=== PATIENT | male | born 1965 | race Hispanic/Latino ===

== ENCOUNTER 2017-07-26 22:46 | Observation (INO) | payer SELFPAY ==
[2017-07-26 23:14] LABS: #Basophils 0.1 thou/uL (0.0-0.2); #Eosinphils 0.2 thou/uL (0.0-0.7); #Lymphocytes 2.8 thou/uL (1.20-3.40); #Monocytes 0.9 thou/uL (0.11-0.59); #Neutrophils 8.2 thou/uL (1.40-6.50); %Basophils 0.7 % (0.0-1.0); %Eosinophils 1.5 % (0.0-10.0); %Lymphocytes 23.1 % (21.0-51.0); %Neutrophils 67.7 % (42.0-75.0); Hemoglobin 15.3 g/dL (14.0-18.0); Mean Corpuscular HGB CONC 33.7 g/dL (32.0-36.0); Mean Corpuscular Hemoglobin 31.4 pg (27.0-31.0); Mean Corpuscular Volume 93.1 fl (80.0-94.0); Mean Platelet Volume 7.5 fL (7.4-10.4); Platelet Count 287 thou/uL (130-400); RBC Distribution Width 12.5 % (11.5-14.5); Red Blood Cell (RBC) Count 4.88 mill/uL (4.70-6.10); White Blood Cell (WBC) Count 12.1 thou/uL (4.8-10.8)
[2017-07-26 23:37] LABS: ALT (SGPT) 15 U/L (8-55); AST (SGOT) 13 U/L (5-34); Albumin 4.2 g/dL (3.5-5.0); Alkaline Phosphatase 67 U/L (40-150); Anion Gap 14 mmol/L (10-20); BUN (Urea Nitrogen) 12 mg/dL (8.4-25.7); Bilirubin, Total 0.5 mg/dL (0.2-1.2); Calc. Creatinine Clearance 0 mL/min (70-130); Calcium 9.1 mg/dL (7.8-10.44); Carbon Dioxide 27 mmol/L (22-29); Chloride 105 mmol/L (98-107); Estimated GFR-MDRD 64; Globulin 3.1 g/dL (2.4-3.5); Glucose 104 mg/dL (70-105); Potassium 3.7 mmol/L (3.5-5.1); Protein, Total 7.3 g/dL (6.0-8.3); Sodium 142 mmol/L (136-145)
[2017-07-26 23:39] LABS: CKMB 2.2 ng/mL (0-6.6); Troponin I Less than 0.010 ng/mL (< 0.028)
--- NOTE | 2017-07-26 23:59 | CT ---
NONCONTRAST HEAD CT: Date: 07/26/17 HISTORY: Left arm tingling and pain. COMPARISON: 03/31/16. TECHNIQUE: A noncontrast head CT is performed from the skull base to the skull vertex. FINDINGS: No parenchymal hemorrhage or extra-axial hematoma. No midline shift. Basilar cisterns are patent. Bra in volume is age-appropriate. Cortical franco-white matter differentiation is preserved. Ventricles and sulci are patent and symmetric. Adequate aeration of the sinuses and mastoid air cells. Calvarium is intact. IMPRESSION: No acute intracranial process. POS: [facility]
--- NOTE | 2017-07-27 00:01 | RAD ---
CHEST 1 VIEW: Date: 07/26/17 HISTORY: Chest pain. COMPARISON: 11/12/16. FINDINGS: Normal cardiac silhouette. Pleural spaces are clear. Chronic changes in the lung bases. IMPRESSION: No acute cardiopulmonary process. POS: [facility]
[2017-07-27 02:42] LABS: Amphetamine Not Detected (NotDetected); Barbiturates Screen Not Detected (NotDetected); Benzodiazepine Screen Not Detected (NotDetected); Cocaine Metabolite Screen Not Detected (NotDetected); Medtox Control Line Valid? VALID (VALID); Medtox Reader # READER 4; Methadone Not Detected (NotDetected); Methamphetamine Not Detected (NotDetected); Opiate Screen Not Detected (NotDetected); Oxycodone Screen Not Detected (NotDetected); Phencyclidine (PCP) Not Detected (NotDetected); THC/Cannabinoid Screen Not Detected (NotDetected); Tricyclic Screen Not Detected (NotDetected)
[2017-07-27 02:43] LABS: Troponin I Less than 0.010 ng/mL (< 0.028)
[2017-07-27] MEDS ORDERED: Acetaminophen 325 MG TAB PO PRN (03:42)
[2017-07-27] MEDS ORDERED: Nitroglycerin 0.4 MG TAB (25 Tab Bottle) PO PRN (03:42)
[2017-07-27 05:43] LABS: Troponin I 0.013 ng/mL (< 0.028)
--- NOTE | 2017-07-27 06:51 | HP-2 ---
DATE OF ADMISSION: 07/27/2017 CODE STATUS: FULL. PRIMARY CARE PHYSICIAN: Abel escalera. ATTENDING: Dr. Zayas RESIDENT: Dr. She Hale HISTORIAN: Patient. CHIEF COMPLAINT: Left arm and hand tingling and chest like pressure. HISTORY OF PRESENT ILLNESS: A 51-year-old male with a history of NSTEMI, status post cath without stents, found to have moderate CAD presents with left hand tingling in the distal fingertips and pain in the distal fingertips. He also states that he feels some chest pressure that comes and goes sometimes. He states the chest pressure is not associated with exertion. He has no associated nausea or vomiting. He does not describe the pain as radiating down his arm. He states that the tingling and pain that he is having in his hand is in his fingertips and somewhat in his forearm, but it does not radiate from his chest or from his neck down his arm. He in 2016 had a history of an NSTEMI as stated above was taken to the labor commissioner without stent placement and was found to have moderate CAD. He says he is compliant with medications. 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 PAST MEDICAL HISTORY: 1. Hypertension. 2. Peptic ulcer disease. 3. Epilepsy. 4. Coronary artery disease, moderate. PAST SURGICAL HISTORY: 1. Heart catheterization in 03/2016 without stent placement. 2. Cholecystectomy. 3. Hernia repair. ALLERGIES: No known drug allergies. MEDICATIONS: 1. Aspirin 81 mg. 2. Keppra 500 mg p.o. b.i.d. 3. Lisinopril/HCTZ 1 tab p.o. daily. 4. Simvastatin 20 mg p.o. at bedtime. FAMILY HISTORY: Father had a stroke and also had an ID when he was in his 60s. SOCIAL HISTORY: Tobacco use, smokes 1 pack per day for 40 years. He is a former alcohol and drug user. REVIEW OF SYSTEMS: GENERAL: Denies fevers and chills. EYES: Denies vision changes. RESPIRATORY: Denies cough, congestion. CARDIOVASCULAR: Denies chest pain, palpitations. GASTROINTESTINAL: Denies nausea, vomiting. GENITOURINARY: Denies incontinence, dysuria. SKIN: Denies rashes or lesions. MUSCULOSKELETAL: Denies pain or tenderness. NEUROLOGIC: Denies weakness. Endorses left hand numbness and tingling. PSYCHIATRIC: Denies anxiety, depression. PHYSICAL EXAMINATION: VITAL SIGNS: Blood pressure 145/92, pulse 88, respiratory rate 18, T-max 98.6, pulse ox 97% on room air, current weight 95 kilograms. GENERAL: Alert and oriented x4, no apparent distress. Well-developed, appropriately interactive. EYES: PERRLA, EOMI. ENT: Nasal mucosa and oropharynx within normal limit. NECK: Supple. No lymphadenopathy. CARDIOVASCULAR: Regular rate and rhythm. No murmur, rub or gallops. 2+ pedal pulses. RESPIRATORY: Normal effort, no retractions. ABDOMEN: Soft, nontender to palpation. Bowel sounds in all 4 quadrants. No masses or distention. EXTREMITIES: No clubbing, no cyanosis, no edema. MUSCULOSKELETAL: Structure within normal limits. Tone within normal limits. Muscle power 5/5. Full range of motion. NEUROLOGIC: Presence of peripheral left hand focal deficits with decreased sensation and pain to palpation in the left 4 metacarpal digits. Cranial nerves II-XII intact. GCS of 15. Negative Spurling's, negative Adson's, negative Tinel's. LABORATORY DATA: CBC 12.1, 15.3, 45.4, 287. CMP: 142, 3.7, 105, 27, 12, 1.2, 104, GFR 64. AST, ALT, alkaline phosphatase 13, 15, 67. Calcium, total protein, albumin, 9.17, 0.34, 0.2. Total bilirubin 0.5. CK-MB 2.2, troponin less than 0.01. CK 198. EKG: Normal sinus rhythm with nonspecific changes showing Q-waves in lead II. Chest x-ray; no acute cardiopulmonary process. CT brain, no acute intracranial process. ASSESSMENT AND PLAN: A 51-year-old male with a history of an NSTEMI and with moderate CAD presents with tingling and numbness in his left fingertips and transient chest pain described as pressure, admitted for atypical chest pain and peripheral neuropathy of the left upper extremity. 1. Atypical chest pain which was described as pressure transiently that comes and goes. It occurs at rest. His EKG showed nonspecific changes with Q-waves in lead II and his CK-MB and troponins were within normal limits. We will admit to tele observation. We will keep the patient n.p.o. and order a pharmacologic stress test in the morning as the patient had a heart score of 4. 2. Peripheral neuropathy, left upper extremity. I would recommend further outpatient workup if the pain persists. The patient had a negative Spurling's which does not suggest a cervical radiculopathy, as well as a negative Adson's. He also had a negative Tinel's, so his picture does not fit a classic carpal tunnel picture either. However, he only describes the tingling and numbness in his hand that radiates somewhat up his forearm. For pain control we will do a trial of gabapentin. 3. Epilepsy. We will restart the patient's Keppra. 4. Hypertension. We will restart the patient's home medications. BOBD
--- NOTE | 2017-07-27 08:42 | PDOC.EVN ---
Attending Addendum - Attending Addendum I personally evaluated the patient and discussed the management with Dr. Yuki Hale. I agree with the History, Examination, Assessment and Plan documented in her H& P with any addition or exceptions noted below. Patient with history of CAD based on cath in 2016 presenting with L hand symptoms as well as intermittent chest pressure. His cardiac enzymes are negative, and EKG is more consistent with previous damage but nothing acute. Patient has elevated HEART score, will obtain stress testing today. If negative , can likely be discharged with outpatient follow up with his cardiovascular specialist. Will check other labs and adjust his CAD meds as needed to obtain maximal control of risk factors. In regards to hand pain, seems unrelated to the chest complaint. It is possibly related to a neuropathy of some type that can be further worked up as outpatient.
[2017-07-27] MEDS ORDERED: Lisinopril/Hydrochlorothiazide 10 mg/12.5 mg Tablet PO SCH (09:00)
[2017-07-27] MEDS ORDERED: Gabapentin 100 MG CAP PO SCH (09:00)
[2017-07-27] MEDS ORDERED: levETIRAcetam 500 MG TAB PO SCH (09:00)
[2017-07-27] MEDS ORDERED: Aspirin 81 mg Enteric Coated Tablet PO SCH (09:00)
[2017-07-27 09:27] LABS: Cardiac Risk 4.6 (Less than 4.5)
--- NOTE | 2017-07-27 13:53 | NM ---
CARDIAC SPECT: CLINICAL HISTORY: 51-year-old male with chest pain. TECHNIQUE: A myocardial perfusion scan was performed using the single isotope one day protocol with technetium-9 9m sestamibi. 9 mCi were injected intravenously for the rest exam followed by 32 mCi for the stress e xam. Pharmacologic stress with Adenosine was monitored and interpreted by Kate Gordon NP. FINDINGS: There is a fixed defect in the distal inferior wall. No reversible defects are seen. GATED SPECT LVEF: 50%. WALL MOTION EXAM: No significant wall motion abnormalities are seen. IMPRESSION: 1. No evidence of reversible ischemia. 2. Distal inferior wall scar. POS: [facility]
[2017-07-27] MEDS ORDERED: ADENOSINE 60 MG/20 ML VIAL ONE (16:45)
[2017-07-27] MEDS ORDERED: Atorvastatin Calcium 10 MG TAB PO SCH (21:00)
--- NOTE | 2017-07-28 06:14 | DIS-2 ---
DATE OF ADMISSION: 07/27/2017 DATE OF DISCHARGE: 07/27/2017 ADMITTING ATTENDING: Gary Daily M.D. DISCHARGE ATTENDING: Gary Daily M.D. RESIDENT: Estrella Rodriguez D.O. CONSULTATIONS: None. PROCEDURES: 1. Brain CT, no acute intracranial process. 2. Chest x-ray, no acute cardiopulmonary process. 3. Stress test nuclear medicine, no evidence of reversible ischemia, distal inferior wall scar, no significant wall motion abnormalities seen, and normal left ventricular ejection fraction estimated at 50%. PRIMARY DIAGNOSES: 1. Atypical chest pain. 2. Left upper extremity peripheral neuropathy. SECONDARY DIAGNOSES: 1. Epilepsy. 2. Hypertension. 3. Moderate coronary artery disease status post catheterization without stents in 2016. 4. History of peptic ulcer disease. DISCHARGE MEDICATIONS: 1. Gabapentin 100 mg oral daily. 2. Aspirin 81 mg oral daily. 3. Dicyclomine 10 mg oral every 6 hours as needed. 4. Keppra 500 mg oral twice daily. 5. Lisinopril/hydrochlorothiazide 10/12.5 mg tablet 1 tablet oral daily. 6. Metoprolol tartrate 25 mg every 12 hours. 7. Simvastatin 20 mg oral at bedtime. DISCONTINUED MEDICATIONS: None. HISTORY OF PRESENT ILLNESS AND HOSPITAL COURSE: This is a 51-year-old male with history significant for hypertension and moderate coronary artery disease status post catheterization without stents in 2016, presented with left hand and finger numbness and tingling as well as intermittent chest pressure. The patient stated that chest pressure was intermittent and occurred maybe once to twice a month. Of note, the patient has had this left upper extremity numbness and tingling since about the age of 5. He did have trauma to the left upper extremity at that age, whereby he fell onto barbed wire fence and had damage down to the bone which required some surgery. The patient states that this numbness and tingling does tend to be worse often at night and in the mornings, and it does resolve usually on its own and does not keep him from completing his work. The numbness and tingling is also not associated with chest pain. The patient did have an NSTEMI in 2016, at which time he had a catheterization done. Moderate coronary artery disease was found, but there were no stents placed at that time. The patient states that he has been compliant with his medications, although he is about to run out and does not able to get an appointment with [facility]. 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 His work does tend to sometimes aggravate the tingling and pain in his hand. The patient remained stable throughout the course of his hospital stay. Due to his coronary artery disease history, a stress test was performed which did show distal wall scar with no reversible or acute ischemic changes noted. Likely this numbness and tingling he is experiencing his peripheral neuropathy secondary to trauma from when he was a kid. It was explained that this could be lifelong. However, gabapentin was prescribed to attempt with resolution or improvement in symptoms. It was explained that we would send him home on this in an attempt to lessen the symptoms he was experiencing. The patient denied any chest pain during the course of his hospital stay and the numbness and tingling in his left upper extremity had improved prior to discharge. Of note, cardiac enzymes are negative x3. There are no significant abnormalities on lipid panel, and chemistry panel was within normal limits. DISPOSITION: Stable. DISCHARGE INSTRUCTIONS: 1. Location: Home. 2. Activity: No restrictions. 3. Diet: Heart healthy. 4. Followup: The patient is to follow up within 7 days with [facility]. QIANA
--- NOTE | 2017-08-01 17:25 | EKG ---
Test Reason : Blood Pressure : / mmHG Vent. Rate : 095 BPM Atrial Rate : 095 BPM P-R Int : 154 ms QRS Dur : 086 ms QT Int : 340 ms P-R-T Axes : 074 -25 015 degrees QTc Int : 427 ms Normal sinus rhythm Inferior infarct , age undetermined Abnormal ECG Confirmed by ELIO LITTLE, CLEMENTE Gonzalez ([id number]), editor city VIRY HALL ([id number]) on 08/01/2017 5:25:16 PM Referred By: Confirmed By:CLEMENTE BALLARD MD
== END 2017-07-27 15:18 | disposition home or self-care (01) ==
LOC: ERS 22:46 → ERHOLD 07-27 00:11
PROVIDERS: ADMIT Family Medicine; ATTEND Family Medicine
DX: R07.89 Other chest pain (principal); G62.9 Polyneuropathy, unspecified; G40.909 Epilepsy, unspecified, not intractable, without status epilepticus; I10 Essential (primary) hypertension; F17.210 Nicotine dependence, cigarettes, uncomplicated; I25.10 Atherosclerotic heart disease of native coronary artery without angina pectoris; K27.9 Peptic ulcer, site unspecified, unspecified as acute or chronic, without hemorrhage or perforation; Z79.82 Long term (current) use of aspirin; Z79.899 Other long term (current) drug therapy; Z90.49 Acquired absence of other specified parts of digestive tract; Z98.890 Other specified postprocedural states; Z82.3 Family history of stroke; Z82.49 Family history of ischemic heart disease and other diseases of the circulatory system
CPT/HCPCS: 36415; 70450; 71045; 78452; 80053; 80061; 80306; 82553; 84484; 85025; 93005; 93017; A9500; G0378; J0153

== ENCOUNTER 2017-09-08 22:13 | Emergency (ER) | payer SELFPAY ==
[2017-09-08] MEDS ORDERED: Acetaminophen 500 MG TAB ONE (22:52)
== END 2017-09-08 23:42 | disposition home or self-care (01) ==
LOC: ERS 22:13
DX: B34.9 Viral infection, unspecified (principal); I10 Essential (primary) hypertension; G40.909 Epilepsy, unspecified, not intractable, without status epilepticus; F17.210 Nicotine dependence, cigarettes, uncomplicated; Z79.82 Long term (current) use of aspirin; Z79.899 Other long term (current) drug therapy
CPT/HCPCS: 87081; 87430; 99406

== ENCOUNTER 2017-10-11 22:09 | Observation (INO) | payer SELFPAY ==
[2017-10-11 23:02] LABS: #Basophils 0.1 thou/uL (0.0-0.2); #Eosinphils 0.3 thou/uL (0.0-0.7); #Lymphocytes 3.2 thou/uL (1.20-3.40); #Monocytes 0.6 thou/uL (0.11-0.59); #Neutrophils 5.3 thou/uL (1.40-6.50); %Basophils 0.9 % (0.0-1.0); %Eosinophils 2.7 % (0.0-10.0); %Lymphocytes 33.8 % (21.0-51.0); %Monocytes 6.4 % (0.0-10.0); %Neutrophils 56.2 % (42.0-75.0); Hemoglobin 14.9 g/dL (14.0-18.0); Mean Corpuscular HGB CONC 32.9 g/dL (32.0-36.0); Mean Corpuscular Volume 91.1 fl (80.0-94.0); Mean Platelet Volume 7.4 fL (7.4-10.4); Platelet Count 290 thou/uL (130-400); RBC Distribution Width 12.9 % (11.5-14.5); Red Blood Cell (RBC) Count 4.99 mill/uL (4.70-6.10); White Blood Cell (WBC) Count 9.4 thou/uL (4.8-10.8)
[2017-10-11 23:22] LABS: ALT (SGPT) 18 U/L (8-55); AST (SGOT) 13 U/L (5-34); Albumin 4.1 g/dL (3.5-5.0); Alkaline Phosphatase 72 U/L (40-150); Anion Gap 11 mmol/L (10-20); BUN (Urea Nitrogen) 9 mg/dL (8.4-25.7); Bilirubin, Total 0.4 mg/dL (0.2-1.2); CRP (Inflammatory) Less than 0.50 mg/dL (= or < 0.5); Calc. Creatinine Clearance 0 mL/min (70-130); Calcium 8.8 mg/dL (7.8-10.44); Carbon Dioxide 27 mmol/L (22-29); Chloride 106 mmol/L (98-107); Estimated GFR-MDRD 68; Globulin 3.1 g/dL (2.4-3.5); Glucose 125 mg/dL (70-105); Potassium 3.8 mmol/L (3.5-5.1); Protein, Total 7.2 g/dL (6.0-8.3); Sodium 140 mmol/L (136-145)
[2017-10-12] MEDS ORDERED: Ketorolac Tromethamine 30 MG/ML VIAL ONE (00:09)
[2017-10-12] MEDS ORDERED: Morphine 4 MG/ML VIAL ONE (00:09)
[2017-10-12 00:27] LABS: Bilirubin Negative (Negative); Blood, Urine Negative (Negative); Clarity CLEAR (Clear); Glucose, Urine (Dipstick) Negative (Negative); Leukocyte Negative (Negative); Nitrite Negative (Negative); Protein, Urine (Dipstick) Negative (Neg-Trace); Specific Gravity, Urine 1.015 (1.002-1.036); Urobilinogen 0.2 mg/dL (0.2-1.0)
[2017-10-12] MEDS ORDERED: Heparin 5,000 UNITS/ML VIAL ONE ×2 (02:04→03:02)
[2017-10-12 02:34] LABS: PTT 29.3 SEC (22.9-36.1); Prothrombin Time 12.8 SEC (12.0-14.7)
[2017-10-12] MEDS ORDERED: Protamine Sulfate 50 MG/5 ML VIAL ONE (03:02)
[2017-10-12] MEDS ORDERED: Fentanyl 100 MCG/2 ML VIAL ONE (03:25)
[2017-10-12] MEDS ORDERED: Midazolam HCl 2 mg/2 ml Vial ONE (03:25)
[2017-10-12] MEDS ORDERED: Promethazine HCl 25 MG/ML VIAL IM PRN (03:54)
[2017-10-12] MEDS ORDERED: Ondansetron HCl/PF 4 MG/2 ML Vial IVP PRN (03:54)
[2017-10-12] MEDS ORDERED: Promethazine HCl 25 MG/ML VIAL SLOW IVP PRN (03:54)
--- NOTE | 2017-10-12 05:27 | HP ---
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 The patient has had a similar episode in the p ast, although he cannot be more specific about time or date. His workup included a CT angiography sh owing partially occluding thrombus in the left distal brachial artery. PAST MEDICAL HISTORY: Negative cardiac catheterization about 2 years ago. He has no history of atri al fibrillation. Patient denies any history of atrial fibrillation. Past medical history includes s eizure disorder. The patient also takes medication for dyslipidemia and some other cardiac medicatio n that he and his are unsure of. PAST SURGICAL HISTORY: Includes cholecystectomy and a left inguinal hernia repair. SOCIAL HISTORY: The patient smokes a pack of cigarettes a day. He denies any alcohol or drug abuse. ALLERGIES: He has no known allergies. HOME MEDICATIONS: Keppra 500 mg b.i.d., lisinopril/HCTZ 10/12.5 daily, metoprolol 25 mg b.i.d., staci pentin 100 mg daily, dicyclomine 10 mg q.6h. p.r.n. PHYSICAL EXAMINATION: VITAL SIGNS: Heart rate 80, blood pressure 140 systolic. NECK: No carotid bruits. LUNGS: Clear to auscultation. CARDIAC: Regular rate and rhythm. No murmurs. ABDOMEN: Soft, nontender. EXTREMITIES: He has no lower extremity edema. He has palpable brachial and radial pulse in the left hand. He has no obvious discoloration of his hand. PLAN: At this time, it appears that the patient at some point has probably had an embolic event to h is left distal brachial artery that has recanalized. I have gone over the option of no intervention versus embolectomy endarterectomy and the patient is agreeable to proceed.
--- NOTE | 2017-10-12 05:30 | OP ---
DATE OF PROCEDURE: 10/12/2017 PREOPERATIVE DIAGNOSIS: Embolused thrombus in the left brachial artery. PROCEDURE: Left brachial artery exploration and replacement with interposition cephalic vein graft. SURGEON: Dr. Mejia Aguilar M.D. ANESTHESIA: General. ESTIMATED BLOOD LOSS: Minimal. PROCEDURE IN DETAIL: After adequate anesthesia had been obtained, the patient was prepped and draped . Incision was made along the distal left upper arm extending to the antecubital crease, brachial ar jigar was dissected out. There was some sclerotic reaction around the vessel and it was palpably quit e firm. After 5000 units of heparin had been given clamps were applied and a longitudinal arteriotom y performed through a thick white and atherosclerotic plaque with some fresh thrombus adherent to thi s plaque in the lumen. Attempted endarterectomy was not very successful with a rather irregular and rough lumen being left. At that time a piece of cephalic vein was harvested from the same incision r eversed and an end-to-end anastomosis completed proximally and then distally restoring flow. Followi ng this, the wound was closed in layers and the patient is to be taken to the recovery room.
[2017-10-12] MEDS ORDERED: Fentanyl 100 MCG/2 ML VIAL SLOW IVP PRN (06:13)
[2017-10-12] MEDS ORDERED: hydrALAZINE 20 MG/ML VIAL SLOW IVP PRN (06:13)
[2017-10-12] MEDS ORDERED: Ondansetron PF 4 MG/2 ML Vial IVP PRN (06:13)
[2017-10-12] MEDS ORDERED: HYDROcodone/Acetaminophen 5/325 mg Tablet PO PRN ×2 (06:13)
[2017-10-12] MEDS ORDERED: Sodium Chloride 0.9% 1,000 ML IV SCH (06:13)
[2017-10-12] MEDS ORDERED: Acetaminophen 325 MG TAB PO PRN (06:13)
[2017-10-12] MEDS ORDERED: CEFAZOLIN/Water 2 GM/20 ML SYRINGE SLOW IVP SCH (08:00)
[2017-10-12 08:34] VITALS: BMI 28.0
--- NOTE | 2017-10-12 08:46 | ULT ---
PRELIMINARY REPORT/[facility]/EMERGENTY AFTER-HOURS PROCEDURE US Duplex Left Upper Extremity Veins CLINICAL HISTORY: 52 years old, male; Pain; Other: Pain, swellin, numbness lue; Prior surgery; Surgery date: 6+ months; Surgery type: Trama and vessel surg at 5 y/o- mid upper arm. TECHNIQUE: Real-time duplex ultrasound scan of the left upper extremity veins integrating B-mode two dimensional vascular structure, Doppler spectral analysis, color flow Doppler imaging and compression. COMPARISON: No relevant prior studies available. FINDINGS: Deep veins: Normal. No DVT in the internal jugular, subclavian, axillary, or brachial veins. The vein s demonstrate normal color flow, are normally compressible, with normal phasic flow and/or augmentati on response. Superficial veins: Normal. No thrombus in the visualized basilic and cephalic veins. Soft tissues: No acute findings. IMPRESSION: No LEFT upper extremity DVT. US Duplex Left Upper Extremity Arteries TECHNIQUE: Real-time duplex ultrasound scan of the left upper extremity arteries integrating B-mode two dimensio nal vascular structure, Doppler spectral analysis and color flow Doppler imaging. COMPARISON: No relevant prior studies available. FINDINGS: Left brachial artery: Evaluation of the distal LEFT brachial artery demonstrates peak systolic veloci ty of 264 cm/s consistent with stenosis. Soft plaque versus clot is noted within the distal LEFT brac hial artery. Left radial artery: LEFT radial artery demonstrates peak systolic velocity of 104 cm/s. Normal wavefo rm. Left ulnar artery: LEFT ulnar artery peak systolic velocity measures 107 cm/s. Normal waveform. Soft tissues: Normal. IMPRESSION: Distal LEFT brachial artery stenosis on the basis of soft plaque versus clot as above. Thank you for allowing us to participate in the care of your patient. Dictated and Authenticated by: Enzo Wilson MD 10/12/2017 12:25 AM Central Time ([place] & [place]) FINAL REPORT VENOUS DUPLEX SONOGRAM LEFT UPPER EXTERMITY ARTERIAL DUPLEX SONOGRAM LEFT UPPER EXTREMITY: DATE: 10/11/17. TIME: Performed on an emergency basis at 2350 hours. HISTORY: Left arm pain and edema. Numbness. Arterial compromise. FINDINGS: Findings agree with the preliminary report from [facility]. Good color and spectral Doppler f low are present within the arteries and veins. The findings suggest stenosis of the distal left brac hial artery. POS: [facility]
[2017-10-12] MEDS ORDERED: Aspirin 325 MG TAB PO SCH (09:00)
[2017-10-12] MEDS ORDERED: levETIRAcetam 500 MG TAB PO SCH (09:00)
[2017-10-12] MEDS ORDERED: Metoprolol Tartrate 25 MG TAB PO SCH (09:00)
--- NOTE | 2017-10-12 09:02 | CT ---
PRELIMINARY REPORT/[facility]/EMERGENTY AFTER-HOURS PROCEDURE CT Angiography of the Left Upper Extremity With Intravenous Contrast EXAM DATE/TIME: Exam ordered 10/12/2017 1:15 AM CLINICAL HISTORY: 52 years old, male; Pain; Upper arm; Left; Patient HX: Possible clot TECHNIQUE: Axial computed tomographic angiography images of the left upper extremity with intravenous contrast u [facility] CT angiography protocol. CONTRAST: 100 mL of ISOVUE administered intravenously. COMPARISON: Upper extremity duplex from same day. FINDINGS: VASCULATURE: Left brachial artery: There is age-indeterminate filling defect within the distal LEFT brachial arter y at the antecubital fossa measuring approximately 6 x 5 x 14 mm probably representing thrombus. This results in moderate stenosis (approximately 60%). Proximal and mid brachial artery is normal Left radial artery: No acute findings. No occlusion or significant stenosis. Left ulnar artery: No acute findings. No occlusion or significant stenosis. UPPER EXTREMITY: Bones/joints: No acute fracture. No dislocation. Soft tissues: Normal. No abnormal contrast enhancement. IMPRESSION: Distal LEFT brachial artery age-indeterminate but probably subacute/chronic thrombus resulting in mod erate stenosis as above. Findings were discussed with emergency room physician covering for Dr. Yoon at 10/12/2017 1:44 AM CDT. Thank you for allowing us to participate in the care of your patient. Dictated and Authenticated by: Enzo Wilson MD 10/12/2017 1:45 AM Central Time ([place] & [place]) FINAL REPORT CT OF LEFT UPPER EXTREMITY PERFORMED WITH CONTRAST ENHANCEMENT: Date: 10/12/17 HISTORY: Hand pain. Possible clot. Shoulder pain and diffuse arm pain. FINDINGS: This study is done more in the angiographic phase. It shows an age-indeterminate thrombus within the left brachial artery associated with moderate stenosis. This is a focal area of thrombus measuring 1. 9 cm in length. No other areas of arterial stenosis are seen. No soft tissue masses. IMPRESSION: Moderately severe stenosis of the left brachial artery related to an age-indeterminate area of thromb us measuring 1.9 cm in length. This report is in agreement with the preliminary report issued by [facility]. POS: [facility]
[2017-10-12 11:37] VITALS: BP 142/96; TEMP 98.7
[2017-10-12] MEDS ORDERED: ISOVUE-370 76%-LOCM 1 ML ONE (15:47)
[2017-10-12] MEDS ORDERED: PHENYLEPHRINE-NS 100 MCG/ML 10 ML SYRINGE ONE (16:08)
[2017-10-12] MEDS ORDERED: PROPOFOL 200 MG/20 ML VIAL ONE (16:08)
[2017-10-12] MEDS ORDERED: Heparin 10,000 UNITS/ 10 ML VIAL ONE (16:08)
[2017-10-12] MEDS ORDERED: ePHEDrine/0.9% NaCl/PF SYRINGE 50 mg/10 ml ONE (16:08)
[2017-10-12] MEDS ORDERED: Lidocaine 1% PF 5 ML VIAL ONE (16:08)
[2017-10-12] MEDS ORDERED: Glycopyrrolate 0.2 MG/ML 5 ML SYRINGE ONE (16:08)
[2017-10-12] MEDS ORDERED: Succinylcholine Chloride 20 MG/ML 10 ml SYRINGE FS ONE (16:08)
--- NOTE | 2017-11-23 14:27 | EKG ---
Test Reason : Blood Pressure : / mmHG Vent. Rate : 074 BPM Atrial Rate : 074 BPM P-R Int : 154 ms QRS Dur : 092 ms QT Int : 380 ms P-R-T Axes : 040 -18 019 degrees QTc Int : 421 ms Normal sinus rhythm Inferior infarct , age undetermined Abnormal ECG Reconfirmed by CAROLINE CRUZ ([id number]), editor dictionary CONNOR CARDOZO ([id number]) on 11/23/2017 2:27:29 PM Referred By: Confirmed By:CAROLINE CRUZ
== END 2017-10-12 15:00 | disposition home or self-care (01) ==
LOC: ERS 22:09 → 2SW 10-12 03:30 → SDC/OP 10-12 04:49 → SURG A 10-12 05:41 → 2SW 10-12 08:26
PROVIDERS: ADMIT Thoracic Surgery (Cardiothoracic Vascular Surgery); ATTEND Thoracic Surgery (Cardiothoracic Vascular Surgery)
DX: I74.2 Embolism and thrombosis of arteries of the upper extremities (principal); F17.210 Nicotine dependence, cigarettes, uncomplicated; E78.5 Hyperlipidemia, unspecified; Z79.899 Other long term (current) drug therapy
CPT/HCPCS: 36415; 80053; 81003; 85025; 85379; 85610; 85730; 86140; 88304; 88313; 93005; 93306; 96374; 96375; G0378; G8978-GP-CJ; G8979-GP-CJ; G8980-GP-CJ; J1644; J1885; J2001; J2250; J2270; J2704; J2720; J3010

== ENCOUNTER 2017-12-26 14:18 | Emergency (ER) | payer SELFPAY ==
--- NOTE | 2017-12-26 14:57 | RAD ---
LEFT SHOULDER 3 VIEWS: Date: 12/26/17 HISTORY: Shoulder pain. FINDINGS: Humeral head is normally positioned. AC joint normally aligned. No significant degenerative change ap parent. IMPRESSION: Unremarkable left shoulder. POS: [facility]
== END 2017-12-26 15:33 | disposition home or self-care (01) ==
LOC: ERS 14:18
DX: M25.512 Pain in left shoulder (principal); I10 Essential (primary) hypertension; G40.909 Epilepsy, unspecified, not intractable, without status epilepticus; F17.210 Nicotine dependence, cigarettes, uncomplicated; Z79.899 Other long term (current) drug therapy; Z79.82 Long term (current) use of aspirin

== ENCOUNTER 2018-01-23 15:43 | Emergency (ER) | payer SELFPAY ==
[2018-01-23 16:15] LABS: #Basophils 0.1 thou/uL (0.0-0.2); #Eosinphils 0.1 thou/uL (0.0-0.7); #Monocytes 0.6 thou/uL (0.11-0.59); #Neutrophils 10.2 thou/uL (1.40-6.50); %Basophils 0.5 % (0.0-1.0); %Eosinophils 0.6 % (0.0-10.0); %Lymphocytes 15.2 % (21.0-51.0); %Monocytes 4.3 % (0.0-10.0); %Neutrophils 79.5 % (42.0-75.0); Hemoglobin 15.1 g/dL (14.0-18.0); Mean Corpuscular HGB CONC 33.8 g/dL (32.0-36.0); Mean Corpuscular Hemoglobin 30.5 pg (27.0-31.0); Mean Corpuscular Volume 90.3 fL (78.0-98.0); Mean Platelet Volume 7.5 fL (7.4-10.4); Platelet Count 284 thou/uL (130-400); RBC Distribution Width 12.6 % (11.5-14.5); Red Blood Cell (RBC) Count 4.94 mill/uL (4.70-6.10); White Blood Cell (WBC) Count 12.8 thou/uL (4.8-10.8)
[2018-01-23] MEDS ORDERED: Ondansetron HCl/PF 4 MG/2 ML Vial ONE (16:17)
[2018-01-23 16:36] LABS: ALT (SGPT) 19 U/L (8-55); AST (SGOT) 15 U/L (5-34); Albumin 4.4 g/dL (3.5-5.0); Alkaline Phosphatase 77 U/L (40-150); Anion Gap 14 mmol/L (10-20); BUN (Urea Nitrogen) 14 mg/dL (8.4-25.7); Bilirubin, Total 1.1 mg/dL (0.2-1.2); Calc. Creatinine Clearance 0 mL/min (70-130); Calcium 9.9 mg/dL (7.8-10.44); Carbon Dioxide 22 mmol/L (22-29); Chloride 105 mmol/L (98-107); Estimated GFR-MDRD 76; Globulin 3.3 g/dL (2.4-3.5); Glucose 118 mg/dL (70-105); Lipase 39 U/L (8-78); Potassium 3.9 mmol/L (3.5-5.1); Protein, Total 7.7 g/dL (6.0-8.3); Sodium 137 mmol/L (136-145)
[2018-01-23] MEDS ORDERED: Promethazine HCl 25 MG/ML VIAL ONE (18:06)
[2018-01-23] MEDS ORDERED: Pantoprazole 40 MG VIAL ONE (18:06)
--- NOTE | 2018-01-23 18:09 | ULT ---
RIGHT UPPER QUADRANT ULTRASOUND: 01/23/18 HISTORY: Nausea and vomiting. History of prior cholecystectomy. FINDINGS: Majority of the pancreas obscured by bowel gas and not well evaluated. There is coarsened echotexture of the liver which also demonstrates increased echogenicity relative t o the right kidney suggesting fatty infiltration. No focal hepatic lesion is seen. The liver is enlarged measuring 18 cm in craniocaudal dimensions. Gallbladder is not visualized with reported prior history of cholecystectomy. The common duct is dila juan luis measuring 1.3 cm although more dilated than expected and is likely related to reservoir effect. The visualized portions of the IVC demonstrate a normal sonographic appearance. The right kidney measures 8.6 cm in length. There is no renal cortical thinning present. There are two echogenic foci seen within the mid portion of the right kidney measuring 0.7 and 0.8 cm respectively. No definite posterior shadowing is seen to suggest these represent cortically based ca lcifications and may represent prominent vessels as opposed to cortically based calcifications. IMPRESSION: 1. Hepatomegaly with fatty infiltration of the liver. 2. Post cholecystectomy changes. POS: [facility]
== END 2018-01-23 18:35 | disposition home or self-care (01) ==
LOC: ERS 15:43
DX: R11.2 Nausea with vomiting, unspecified (principal); I10 Essential (primary) hypertension; G40.909 Epilepsy, unspecified, not intractable, without status epilepticus; F17.210 Nicotine dependence, cigarettes, uncomplicated; Z79.899 Other long term (current) drug therapy; Z79.82 Long term (current) use of aspirin
CPT/HCPCS: 76705; 80053; 83690; 85025; 93005; 96361; 96365; 96375; 99406; C9113; J2270; J2405; J2550

== ENCOUNTER 2018-02-12 18:29 | Emergency (ER) | payer SELFPAY ==
--- NOTE | 2018-02-12 19:29 | RAD ---
LEFT SHOULDER THREE VIEWS: 02/12/18 HISTORY: Left shoulder pain. COMPARISON: 12/26/17. FINDINGS: Acromioclavicular and glenohumeral alignment are maintained. Mild osteophytosis. Subcortical cysts at the greater tuberosity are again demonstrated. IMPRESSION: Mild osteoarthritic changes left shoulder. POS: [facility]
[2018-02-12] MEDS ORDERED: Ketorolac Tromethamine 30 MG/ML VIAL ONE (20:32)
[2018-02-12] MEDS ORDERED: Acetaminophen 500 MG TAB ONE (20:32)
== END 2018-02-12 20:54 | disposition home or self-care (01) ==
LOC: ERS 18:29
DX: M19.011 Primary osteoarthritis, right shoulder (principal); I10 Essential (primary) hypertension; G40.909 Epilepsy, unspecified, not intractable, without status epilepticus; F17.210 Nicotine dependence, cigarettes, uncomplicated
CPT/HCPCS: 96372; J1885

== ENCOUNTER 2018-03-06 17:38 | Emergency (ER) | payer SELFPAY ==
--- NOTE | 2018-03-06 20:48 | RAD ---
LEFT FOOT THREE VIEWS: 03/06/18 HISTORY: Left foot pain. FINDINGS: Lisfranc joint alignment is anatomic. Pes planus on the lateral view. Plantar and Achilles enthesophy natanael from the posterior aspect of the calcaneus. Mild degenerative changes throughout the foot. No acu te fracture, dislocation, or aggressive osseous erosions. IMPRESSION: Chronic type findings. No acute osseous abnormalities are demonstrated. POS: [facility]
[2018-03-06] MEDS ORDERED: Ketorolac Tromethamine 60 MG/2 ML VIAL ONE (20:50)
[2018-03-06] MEDS ORDERED: Sulfameth/Trimethoprim DS 800-160mg TAB ONE (21:06)
[2018-03-06] MEDS ORDERED: Cephalexin 250 MG CAP ONE (21:06)
== END 2018-03-06 21:48 | disposition home or self-care (01) ==
LOC: ERS 17:38
DX: L03.116 Cellulitis of left lower limb (principal); I49.9 Cardiac arrhythmia, unspecified; G40.909 Epilepsy, unspecified, not intractable, without status epilepticus; F17.210 Nicotine dependence, cigarettes, uncomplicated; Z79.891 Long term (current) use of opiate analgesic; Z79.82 Long term (current) use of aspirin; Z79.899 Other long term (current) drug therapy
CPT/HCPCS: 96372; J1885

== ENCOUNTER 2018-04-20 15:18 | Emergency (ER) | payer SELFPAY ==
[2018-04-20] MEDS ORDERED: Lidocaine 1% (PF) 30 ML VIAL ONE (15:28)
== END 2018-04-20 15:49 | disposition home or self-care (01) ==
LOC: ERS 15:18
DX: L02.211 Cutaneous abscess of abdominal wall (principal); F17.210 Nicotine dependence, cigarettes, uncomplicated; G40.909 Epilepsy, unspecified, not intractable, without status epilepticus; Z71.6 Tobacco abuse counseling; Z79.899 Other long term (current) drug therapy; Z79.891 Long term (current) use of opiate analgesic; Z79.82 Long term (current) use of aspirin
CPT/HCPCS: 10061; 99406; J2001

== ENCOUNTER 2018-04-22 18:37 | Emergency (ER) | payer SELFPAY | END 2018-04-22 19:09 | disposition home or self-care (01) | LOC: ERS 18:37 | DX: Z48.817 Encounter for surgical aftercare following surgery on the skin and subcutaneous tissue (principal); I10 Essential (primary) hypertension; G40.909 Epilepsy, unspecified, not intractable, without status epilepticus; I49.9 Cardiac arrhythmia, unspecified; F17.210 Nicotine dependence, cigarettes, uncomplicated | CPT/HCPCS: 99282 ==

== ENCOUNTER 2018-05-08 17:50 | Emergency (ER) | payer SELFPAY ==
[2018-05-08 18:45] LABS: #Basophils 0.1 thou/uL (0.0-0.2); #Eosinphils 0.2 thou/uL (0.0-0.7); #Lymphocytes 2.4 thou/uL (1.20-3.40); #Monocytes 0.7 thou/uL (0.11-0.59); #Neutrophils 5.8 thou/uL (1.40-6.50); %Basophils 0.9 % (0.0-1.0); %Eosinophils 2.3 % (0.0-10.0); %Lymphocytes 26.4 % (21.0-51.0); %Monocytes 7.1 % (0.0-10.0); %Neutrophils 63.3 % (42.0-75.0); Hemoglobin 14.1 g/dL (14.0-18.0); Mean Corpuscular HGB CONC 32.6 g/dL (32.0-36.0); Mean Corpuscular Hemoglobin 29.9 pg (27.0-31.0); Mean Corpuscular Volume 91.6 fL (78.0-98.0); Mean Platelet Volume 8.1 fL (7.4-10.4); Platelet Count 298 thou/uL (130-400); Red Blood Cell (RBC) Count 4.72 mill/uL (4.70-6.10); White Blood Cell (WBC) Count 9.2 thou/uL (4.8-10.8)
[2018-05-08 18:51] LABS: ALT (SGPT) 14 U/L (8-55); AST (SGOT) 14 U/L (5-34); Alkaline Phosphatase 66 U/L (40-150); Anion Gap 12 mmol/L (10-20); BUN (Urea Nitrogen) 15 mg/dL (8.4-25.7); Bilirubin, Total 0.7 mg/dL (0.2-1.2); Calc. Creatinine Clearance 0 mL/min (70-130); Carbon Dioxide 23 mmol/L (22-29); Chloride 108 mmol/L (98-107); Estimated GFR-MDRD 73; Globulin 3.1 g/dL (2.4-3.5); Glucose 140 mg/dL (70-105); Potassium 3.5 mmol/L (3.5-5.1); Protein, Total 7.1 g/dL (6.0-8.3); Sodium 139 mmol/L (136-145)
[2018-05-08 18:54] LABS: CKMB 2.2 ng/mL (0-6.6); Troponin I Less than 0.010 ng/mL (< 0.028)
[2018-05-08] MEDS ORDERED: Acetaminophen 500 MG TAB ONE (20:24)
== END 2018-05-08 20:30 | disposition home or self-care (01) ==
LOC: ERS 17:50
DX: G40.909 Epilepsy, unspecified, not intractable, without status epilepticus (principal); I10 Essential (primary) hypertension; F17.210 Nicotine dependence, cigarettes, uncomplicated; Z79.899 Other long term (current) drug therapy; Z79.82 Long term (current) use of aspirin
CPT/HCPCS: 80053; 82553; 84484; 85025; 93005; 96360

== ENCOUNTER 2018-05-18 17:24 | Emergency (ER) | payer SELFPAY ==
[2018-05-18] MEDS ORDERED: traMADol HCl 50 MG TAB ONE (18:22)
--- NOTE | 2018-05-18 19:51 | RAD ---
LEFT SHOULDER: 05/18/18 Three views. HISTORY: Shoulder pain. FINDINGS/IMPRESSION: Humeral head appears normally positioned. No fracture, dislocation or other acute process identified. POS: [facility]
== END 2018-05-18 18:24 | disposition home or self-care (01) ==
LOC: ERS 17:24
DX: S43.402A Unspecified sprain of left shoulder joint, initial encounter (principal); I10 Essential (primary) hypertension; G40.909 Epilepsy, unspecified, not intractable, without status epilepticus; F17.210 Nicotine dependence, cigarettes, uncomplicated; W17.89XA Other fall from one level to another, initial encounter; Y92.008 Other place in unspecified non-institutional (private) residence as the place of occurrence of the external cause

== ENCOUNTER 2018-07-09 16:22 | Emergency (ER) | payer SELFPAY ==
--- NOTE | 2018-07-09 17:57 | RAD ---
LEFT FOOT: 07/09/18 Three views. HISTORY: Foot pain. Small enthesophyte from the plantar calcaneus. Tarsals otherwise unremarkable. The metatarsals and ph alanges appear intact. MTP and IP joints appear unremarkable. IMPRESSION: Small plantar enthesophyte. Left foot otherwise unremarkable. POS: [facility]
--- NOTE | 2018-07-09 18:03 | RAD ---
LEFT ANKLE: 07/09/18 Three views. HISTORY: Ankle pain. No evidence of soft tissue swelling. No evidence of acute fracture. Small enthesophytes from the plan tar calcaneus and posterior calcaneus. IMPRESSION: No acute fracture. POS: [facility]
== END 2018-07-09 17:44 | disposition home or self-care (01) ==
LOC: ERS 16:22
DX: M77.32 Calcaneal spur, left foot (principal); M25.572 Pain in left ankle and joints of left foot; I10 Essential (primary) hypertension; G40.909 Epilepsy, unspecified, not intractable, without status epilepticus; F17.210 Nicotine dependence, cigarettes, uncomplicated; Z79.899 Other long term (current) drug therapy; Z79.82 Long term (current) use of aspirin

== ENCOUNTER 2018-07-24 17:46 | Emergency (ER) | payer SELFPAY ==
--- NOTE | 2018-07-24 18:16 | RAD ---
LEFT SHOULDER THREE VIEWS: 07/24/18 HISTORY: Left shoulder pain. FINDINGS: Acromioclavicular and glenohumeral alignment are maintained. Mild subcortical cystic change at the gr eater tuberosity. No acute fracture, dislocation, or aggressive osseous erosions. IMPRESSION: No acute osseous abnormalities are demonstrated. POS: [facility]
[2018-07-24] MEDS ORDERED: Dexamethasone 4 mg/ml Vial ONE ×2 (18:59→19:02)
== END 2018-07-24 19:13 | disposition home or self-care (01) ==
LOC: ERS 17:46
DX: M25.512 Pain in left shoulder (principal); I10 Essential (primary) hypertension; I49.9 Cardiac arrhythmia, unspecified; G40.909 Epilepsy, unspecified, not intractable, without status epilepticus; F17.210 Nicotine dependence, cigarettes, uncomplicated; Z79.82 Long term (current) use of aspirin; Z79.899 Other long term (current) drug therapy
CPT/HCPCS: J1100

== ENCOUNTER 2018-11-02 17:15 | Emergency (ER) | payer SELFPAY ==
[2018-11-02 18:19] LABS: #Basophils 0.1 thou/uL (0.0-0.2); #Eosinphils 0.1 thou/uL (0.0-0.7); #Lymphocytes 1.9 thou/uL (1.20-3.40); #Monocytes 0.4 thou/uL (0.11-0.59); #Neutrophils 9.5 thou/uL (1.40-6.50); %Basophils 0.7 % (0.0-1.0); %Eosinophils 0.5 % (0.0-10.0); %Lymphocytes 15.9 % (21.0-51.0); %Monocytes 3.3 % (0.0-10.0); %Neutrophils 79.6 % (42.0-75.0); Mean Corpuscular HGB CONC 32.5 g/dL (32.0-36.0); Mean Corpuscular Hemoglobin 30.2 pg (27.0-31.0); Mean Corpuscular Volume 92.8 fL (78.0-98.0); Mean Platelet Volume 7.9 fL (7.4-10.4); Platelet Count 310 thou/uL (130-400); RBC Distribution Width 12.6 % (11.5-14.5); Red Blood Cell (RBC) Count 5.63 mill/uL (4.70-6.10)
[2018-11-02 18:51] LABS: ALT (SGPT) 14 U/L (8-55); AST (SGOT) 11 U/L (5-34); Albumin 4.8 g/dL (3.5-5.0); Alkaline Phosphatase 82 U/L (40-150); Anion Gap 13 mmol/L (10-20); BUN (Urea Nitrogen) 10 mg/dL (8.4-25.7); Bilirubin, Total 1.2 mg/dL (0.2-1.2); Calc. Creatinine Clearance 0 mL/min (70-130); Calcium 10.4 mg/dL (7.8-10.44); Carbon Dioxide 28 mmol/L (22-29); Chloride 101 mmol/L (98-107); Estimated GFR-MDRD 65; Globulin 3.6 g/dL (2.4-3.5); Glucose 105 mg/dL (70-105); Lipase 31 U/L (8-78); Potassium 4.4 mmol/L (3.5-5.1); Protein, Total 8.4 g/dL (6.0-8.3); Sodium 138 mmol/L (136-145)
--- NOTE | 2018-11-02 19:28 | RAD ---
XR Chest 1 View Portable History: [Cough] Comparison: Radiograph June 2017 Findings: Lungs are hyperinflated. No confluent airspace consolidation, pneumothorax, or effusion. No acute osseous abnormality. Impression: Lung hyperinflation suggesting obstructive pulmonary disease.
[2018-11-02] MEDS ORDERED: Metoclopramide HCl 10 MG/2 ML VIAL ONE (19:45)
[2018-11-02] MEDS ORDERED: diphenhydrAMINE 50 MG/ML VIAL ONE (19:45)
[2018-11-02] MEDS ORDERED: Mag-Al 1200 mg/1200 mg/30 ML UDCUP ONE (20:43)
[2018-11-02] MEDS ORDERED: Lidocaine Viscous Sol 2% 15 ml UD Cup ONE (20:43)
--- NOTE | 2018-11-06 16:48 | EKG ---
Test Reason : Blood Pressure : / mmHG Vent. Rate : 095 BPM Atrial Rate : 095 BPM P-R Int : 146 ms QRS Dur : 084 ms QT Int : 336 ms P-R-T Axes : 060 -29 039 degrees QTc Int : 422 ms Normal sinus rhythm Inferior infarct , age undetermined Abnormal ECG Confirmed by CARA OLEARY ([id number]), telegraph editor CONNOR CARDOZO ([id number] on 11/06/2018 4:47:08 PM Referred By: Confirmed By:CARA OLEARY
== END 2018-11-02 21:00 | disposition home or self-care (01) ==
LOC: ERS 17:15
DX: J20.9 Acute bronchitis, unspecified (principal); R10.13 Epigastric pain; R11.2 Nausea with vomiting, unspecified; I10 Essential (primary) hypertension; G40.909 Epilepsy, unspecified, not intractable, without status epilepticus; F17.210 Nicotine dependence, cigarettes, uncomplicated
CPT/HCPCS: 36415; 71045; 80053; 83690; 84484; 85025; 87804; 93005; 96365; 96375; J1200; J2765

== ENCOUNTER 2020-01-26 10:15 | Emergency (ER) | payer OTHER ==
[2020-01-26 17:49] LABS: SARS-CoV-2 MS2 Positive; SARS-CoV-2 N Gene Negative; SARS-CoV-2 S Gene Negative; SARS-CoV-2 by NAA Not Detected (NotDetected); SARS-CoV-2 orf1ab Negative
== END 2020-01-26 10:45 | disposition home or self-care (01) ==
LOC: ERS 10:15
DX: R00.0 Tachycardia, unspecified (principal); Z20.828 Contact with and (suspected) exposure to other viral communicable diseases; I10 Essential (primary) hypertension; G40.909 Epilepsy, unspecified, not intractable, without status epilepticus; F17.210 Nicotine dependence, cigarettes, uncomplicated
CPT/HCPCS: 87635; 99282; U0003

== ENCOUNTER 2020-06-30 17:43 | Emergency (ER) | payer SELFPAY ==
[~2020-06-30 17:43] MED LIST: Iopamidol-370 76% 500 ML 1 ML ONE
--- NOTE | 2020-06-30 20:10 | RAD ---
EXAM: CHEST ONE VIEW HISTORY: Epigastric abdominal pain and vomiting for 2 days. COMPARISON: 11/02/2018 FINDINGS: The cardiac silhouette and pulmonary vasculature are within normal limits. No consolidation or pleura l fluid is seen. Chest is stable compared to prior exam. IMPRESSION: No acute cardiopulmonary process.
[2020-06-30 20:37] LABS: #Basophils 0.1 thou/uL (0.0-0.2); #Lymphocytes 2.5 thou/uL (1.20-3.40); #Monocytes 0.8 thou/uL (0.11-0.59); #Neutrophils 10.5 thou/uL (1.40-6.50); %Basophils 0.6 % (0.0-1.0); %Eosinophils 0.3 % (0.0-10.0); %Lymphocytes 17.7 % (21.0-51.0); %Monocytes 5.7 % (0.0-10.0); %Neutrophils 75.7 % (42.0-75.0); Hemoglobin 17.2 g/dL (14.0-18.0); Mean Corpuscular HGB CONC 32.7 g/dL (32.0-36.0); Mean Corpuscular Volume 91.7 fL (78.0-98.0); Platelet Count 339 thou/uL (130-400); RBC Distribution Width 12.6 % (11.5-14.5); Red Blood Cell (RBC) Count 5.72 mill/uL (4.70-6.10); White Blood Cell (WBC) Count 13.9 thou/uL (4.8-10.8)
[2020-06-30 20:42] LABS: ALT (SGPT) 27 U/L (8-55); AST (SGOT) 21 U/L (5-34); Albumin 4.5 g/dL (3.5-5.0); Alkaline Phosphatase 99 U/L (40-110); Anion Gap 15 mmol/L (10-20); BUN (Urea Nitrogen) 15 mg/dL (8.4-25.7); Bilirubin, Total 0.9 mg/dL (0.2-1.2); Calc. Creatinine Clearance 0 mL/min (70-130); Calcium 9.5 mg/dL (7.8-10.44); Carbon Dioxide 27 mmol/L (22-29); Chloride 98 mmol/L (98-107); Globulin 4.1 g/dL (2.4-3.5); Glucose 105 mg/dL (70-105); Lipase 19 U/L (8-78); Potassium 4.1 mmol/L (3.5-5.1); Protein, Total 8.6 g/dL (6.0-8.3); Sodium 136 mmol/L (136-145)
[2020-06-30] MEDS ORDERED: Morphine 4 MG/ML VIAL ONE (21:00)
[2020-06-30] MEDS ORDERED: Ondansetron PF 4 MG/2 ML Vial ONE (21:00)
[2020-06-30 21:38] LABS: Bacteria/HPF None Seen HPF (None Seen); Bilirubin Negative (Negative); Blood, Urine Negative (Negative); Clarity Clear (Clear); Glucose, Urine (Dipstick) Normal (Negative); Ketone, Urine 60 mg/dL (Negative); Leukocyte Negative Leu/uL (Negative); Nitrite Negative (Negative); Protein, Urine (Dipstick) 100 mg/dL (Neg-Trace); RBC/HPF 0-3 HPF (0-3); Specific Gravity, Urine 1.035 (1.002-1.036); Squamous Epithelial 0-3 HPF (0-3); WBC/HPF 0-3 HPF (0-3)
[2020-06-30] MEDS ORDERED: Fentanyl 100 MCG/2 ML VIAL ONE ×2 (22:02→22:04)
--- NOTE | 2020-06-30 22:58 | CT ---
CT ABDOMEN AND PELVIS WITH IV CONTRAST 06/30/2020 CLINICAL INFORMATION: Epigastric abdominal pain and vomiting. COMPARISON: 03/28/2016 Technique: Multiple contiguous axial CT images are obtained through the abdomen and pelvis with IV contrast. Cor onal reformatted images are provided. FINDINGS: Due to difficulty in the initial contrast injection, there is contrast seen in the renal collecting s ystems and urinary bladder. Lower Chest: Linear scarring is again seen at the right lung base. Vessels: Mild atherosclerotic calcifications and plaque are seen in the abdominal aorta and involving the iliac arteries. Abdomen: Portal vein:Patent Gallbladder: Surgically absent. Liver: Minimal intra and extrahepatic biliary ductal dilatation likely to reservoir effect. Liver dem onstrates a normal CT appearance otherwise. Spleen: within normal limits. Pancreas: within normal limits. Adrenals: within normal limits. Kidneys: The right kidney is smaller in size compared to the left kidney, in phase of enhancement is slightly delayed. This is similar to study in 2016. A subcentimeter hypodense lesion is again seen in the midportion right kidney which is unchanged from prior study and statistically likely represent s a cyst. There is mild renal cortical thinning on the right. Minimal scarring lateral aspect superior pole left kidney is seen. Bowel: A few colonic diverticula are seen. Loops of small bowel are normal in caliber. Wall thickenin g is seen involving the stomach predominantly along the greater curvature. However, a similar finding was seen on the study in 2016. Appendix: The appendix is visualized and normal in caliber. Peritoneum: No ascites or free air; no fluid collection. Mesentery and Retroperitoneum: No enlarged mesenteric or retroperitoneal lymph nodes. Abdominal Wall: within normal limits. Pelvis: Reproductive Organs: No pelvic masses. Bladder: within normal limits. Bones: Degenerative changes are present in the spine. No suspicious lytic or sclerotic osseous lesion s are identified. IMPRESSION: 1. Thickening of the villagomez of the stomach greater along the region of the greater curvature. Similar finding was seen on the prior exam. Findings could be related to gastritis. However, given that finding was also present on the prior exam, nonemergent gastroenterology consultation is recommended. Direct visualization may be helpful. 2. Stable atrophy right kidney. 3. Colonic diverticulosis. 4. Postcholecystectomy changes.
[2020-07-01] MEDS ORDERED: Lidocaine Viscous Sol 2% 15 ml UD Cup ONE (00:12)
[2020-07-01] MEDS ORDERED: Milk Of Magnesia 30 ML UDCUP ONE (00:12)
== END 2020-07-01 00:18 | disposition home or self-care (01) ==
LOC: ERS 17:43
DX: R10.13 Epigastric pain (principal); K03.81 Cracked tooth; K02.9 Dental caries, unspecified; R11.2 Nausea with vomiting, unspecified; I10 Essential (primary) hypertension; G40.909 Epilepsy, unspecified, not intractable, without status epilepticus; F17.210 Nicotine dependence, cigarettes, uncomplicated
CPT/HCPCS: 36415; 71045; 74177; 80053; 81003; 81015; 83690; 84484; 85025; 93005; 96374; 96375; J2270; J2405; J3010; Q9967

== ENCOUNTER 2021-01-02 12:32 | Emergency (ER) | payer SELFPAY ==
[2021-01-02] MEDS ORDERED: Lidocaine 1% (PF) 30 ML VIAL ONE (13:13)
[2021-01-02] MEDS ORDERED: Bupivacaine 0.5% 10 ML VIAL ONE (13:13)
[2021-01-02] MEDS ORDERED: Bacitracin 1 PK ONE (15:44)
== END 2021-01-02 16:08 | disposition home or self-care (01) ==
LOC: ERS 12:32
DX: S64.491A Injury of digital nerve of left index finger, initial encounter (principal); S61.213A Laceration without foreign body of left middle finger without damage to nail, initial encounter; S61.215A Laceration without foreign body of left ring finger without damage to nail, initial encounter; I10 Essential (primary) hypertension; I49.9 Cardiac arrhythmia, unspecified; G40.909 Epilepsy, unspecified, not intractable, without status epilepticus; F17.210 Nicotine dependence, cigarettes, uncomplicated; Z79.82 Long term (current) use of aspirin; Z87.19 Personal history of other diseases of the digestive system; Z79.899 Other long term (current) drug therapy; W45.8XXA Other foreign body or object entering through skin, initial encounter
CPT/HCPCS: 12002; J2001; J3490